=== PATIENT | male | born 1945 | race Two or more races ===

== ENCOUNTER 2020-04-02 19:42 | Inpatient (IN) | payer MEDICARE ==
[~2020-04-02] VITALS: Ht 157.5 cm; Wt 68.9 kg
--- NOTE | 2020-04-02 19:45 | NUR ---
SUDHIR FROM HOME C/O DIZZINESS X1 DAY. pt aaox4, -sob, not in acute distress, -sob, denies n/v/d. vss, pending er provider chaya
--- NOTE | 2020-04-02 20:04 | NUR ---
IV INITIATED LAC 18G. LABS DRAWN FROM SITE, TACO MAKER AT BEDSIDE FOR COLLECTION. IV INTACT AND PATENT, PLACED ON SALINE LOCK.
[2020-04-02 20:06] LABS: BASOPHILS # (AUTO) 0.3 /CMM (0.0-0.2); BASOPHILS % (AUTO) 2.7 % (0.0-2.0); EOSINOPHILS % (AUTO) 4.4 % (0.0-6.0); HEMATOCRIT 42 % (39-51); HEMOGLOBIN 14.3 g/dL (13.5-17.5); LYMPHOCYTES # (AUTO) 1.6 /CMM (0.8-4.8); MEAN CORPUSCULAR HGB CONC 34 g/dl (31.0-36.0); MEAN CORPUSCULAR VOLUME 93 fL (80-96); MONOCYTES # (AUTO) 0.8 /CMM (0.1-1.30); MONOCYTES % (AUTO) 8.5 % (2.0-12.0); NEUTROPHILS # (AUTO) 6.2 /CMM (1.8-8.9); NEUTROPHILS % (AUTO) 67.4 % (43.0-81.0); PLATELET COUNT (AUTO) 350 /CMM (150-450); RED BLOOD CELL COUNT(AUTO) 4.52 MIL/uL (4.5-6.0); WHITE BLOOD COUNT (AUTO) 9.2 K/uL (4.3-11.0)
--- NOTE | 2020-04-02 20:12 | NUR ---
PT BROUGHT BY RADIOLOGY TO CT
[2020-04-02 20:14] LABS: CALCIUM, SERUM 8.9 mg/dL (8.5-10.1); CREATININE 0.7 mg/dL (0.6-1.3); POTASSIUM 4.2 mmol/L (3.5-5.1)
[2020-04-02] MEDS ORDERED: ALPRAZOLAM 0.25 MG TABLET PO ONE (21:30)
[2020-04-02] MEDS ORDERED: ACETAMINOPHEN 325 MG TABLET PO ONE (21:30)
--- NOTE | 2020-04-02 21:34 | NUR ---
LAB CALLED REGARDING NEGATIVE COVID RESULT.
[2020-04-02] MEDS ORDERED: LORAZEPAM 0.5 MG TABLET ONE (21:42)
[2020-04-02] MEDS ORDERED: ACETAMINOPHEN 325 MG TABLET ONE (21:43)
--- NOTE | 2020-04-02 22:02 | NUR ---
DR. CHARLIE DELEON PER ER ORDER.
[2020-04-02] MEDS ORDERED: IV NS 0.9% 500 ML BAG IV ONE (22:30)
[2020-04-02] MEDS ORDERED: MAGNESIUM HYDROXIDE 30 ML UDC PO PRN (23:00)
[2020-04-02] MEDS ORDERED: Z GUARD REMEDY 2 OZ OINT TP PRN (23:00)
[2020-04-02] MEDS ORDERED: MAG HYDROX/AL HYDROX/SIMETH 30 ML UDC PO PRN (23:00)
[2020-04-02] MEDS ORDERED: ONDANSETRON HCL/PF 4 MG/2 ML VIAL IVP PRN (23:00)
--- NOTE | 2020-04-02 23:32 | NUR ---
US AT BEDSIDE
--- NOTE | 2020-04-03 00:02 | NUR ---
TELE 311-2
--- NOTE | 2020-04-03 00:30 | NUR ---
report given to svetlana martinez for kristi
--- NOTE | 2020-04-03 01:00 | NUR ---
consumer services advisoralarm installation technician notes Pt arrived at the unit with a wheelchair and EMT. Pt is alert and orientedX4. Respiration is normal in room air. No SOB. No S/S of distress noted. VS is stable. Tele monitor showed SR. IV site at LAC# 18 is clean, intact and flushes well. Skin assessment is done and performed. Pt's skin is intact. Pt's belonging is checked by SHRADDHA Flynn and placed at Pt's chart. Pt informed that Pt's daughter Veronica will come in the morning and metal pickling equipment operator his wallet and also drop off Pt's medications lists. Reorient Pt to the room and the use of call light. Pt verbalize understanding. Admission order received from MD. Safety precautions is maintained. Bed at low position, brakes locked, side rails upX2 and call light is within reach. Will continue to monitor.
[2020-04-03 01:15] VITALS: BP 109/58
--- NOTE | 2020-04-03 01:55 | NUR ---
legal instruments examiner notes Informed and notified Echo result to JANENE Reaves. ADOPTION AGENT ordered for excellence specialist to see the result tomorrow. Charge nurse is aware and informed.
[2020-04-03] MEDS: ACETAMINOPHEN 325 MG TABLET PO PRN ×2 (02:10→08:46)
--- NOTE | 2020-04-03 02:10 | NUR ---
fork truck operator notes Pt's complaining of headache and requesting tylenol. Administered tylenol 325 mg/2 tabs/po as ordered for headache. Safety precautions is maintained. Will continue to monitor.
[2020-04-03] MEDS: IV NS 0.9% 1,000 ML IV PRN (02:33)
[2020-04-03 04:00] VITALS: BP 111/63
--- NOTE | 2020-04-03 05:36 | NUR ---
graduate assistant athletic trainer notes Pt's complaining of headache and requesting meds. RECORDS MANAGEMENT TECHNICIAN ordered ibuprofen 200 mg/Q 8 hr/PRN/po. Order carried out.
[2020-04-03] MEDS ORDERED: IBUPROFEN 200 MG TABLET ONE (05:46)
--- NOTE | 2020-04-03 05:47 | NUR ---
marina porter notes Pt's complaining of headache and requesting meds. Administered ibuprofen 200 mg/po/prn as ordered for headache. Safety precautions is maintained. Will continue to monitor.
[2020-04-03] MEDS ORDERED: IBUPROFEN 200 MG TABLET PO PRN (06:00)
[2020-04-03 06:40] LABS: BASOPHILS # (AUTO) 0.2 /CMM (0.0-0.2); EOSINOPHILS % (AUTO) 5.1 % (0.0-6.0); HEMATOCRIT 39 % (39-51); LYMPHOCYTES # (AUTO) 2.3 /CMM (0.8-4.8); MEAN CORPUSCULAR HGB CONC 33 g/dl (31.0-36.0); MEAN CORPUSCULAR VOLUME 94 fL (80-96); MONOCYTES # (AUTO) 0.8 /CMM (0.1-1.30); NEUTROPHILS # (AUTO) 5.4 /CMM (1.8-8.9); NEUTROPHILS % (AUTO) 58.9 % (43.0-81.0); PLATELET COUNT (AUTO) 327 /CMM (150-450); RED BLOOD CELL COUNT(AUTO) 4.15 MIL/uL (4.5-6.0); WHITE BLOOD COUNT (AUTO) 9.2 K/uL (4.3-11.0)
--- NOTE | 2020-04-03 06:50 | NUR ---
RN CLOSING NOTE: Patient in bed resting comfortably. Patient breathing even and unlabored with no signs of SOB or acute respiratory distress. Safety measure is maintained, bed is in the lowest level, bed is locked, alarm is on, side rails x2 are up, and call light is within reach. Endorsed continuity of care to morning nurse.
[2020-04-03 07:17] LABS: CALCIUM, SERUM 8.5 mg/dL (8.5-10.1); CREATININE 0.7 mg/dL (0.6-1.3); PHOSPHORUS 3.2 mg/dL (2.5-4.9); POTASSIUM 3.9 mmol/L (3.5-5.1)
[2020-04-03 07:21] LABS: THYROID STIMULATING HORMONE 3.685 uIU/mL (0.358-3.74)
[2020-04-03 08:00] VITALS: BP 126/84
[2020-04-03] MEDS: PANTOPRAZOLE 40 MG TABLET.DR PO SCH (08:44)
[2020-04-03] MEDS: HYDROCODONE/APAP 5/325MG TABLET PO PRN ×2 (13:21→17:00)
[2020-04-03 16:00] VITALS: BP 155/70
--- NOTE | 2020-04-03 18:00 | NUR ---
received pt. in am alert and oriented x3-4.asks same questions freq.getting oob often to brm. or to go to desk.med. x3 for headache.dtr. calling in freq. to check on pt.home meds brought in by dtr. as well as some more belongings. added to belonging sheet. dr. murrieta made aware meds to be added.iv infusing.on tele.ua sent as per orders.
[2020-04-03] MEDS ORDERED: CARV6.252 PO (18:41)
[2020-04-03] MEDS ORDERED: TAMS-12 PO (18:41)
[2020-04-03] MEDS ORDERED: ZOLP5TAB8 PO (18:41)
[2020-04-03] MEDS ORDERED: ASPI-1169 PO (18:41)
[2020-04-03] MEDS ORDERED: CLOP75TA15 PO (18:41)
[2020-04-03] MEDS ORDERED: TURM500C9 PO (18:41)
[2020-04-03] MEDS ORDERED: ACID1TAB12 PO (18:41)
[2020-04-03] MEDS ORDERED: ROSU20TA32 PO (18:41)
[2020-04-03] MEDS ORDERED: OLME40TA12 PO (18:41)
[2020-04-03] MEDS ORDERED: ERGO500014 PO (18:41)
[2020-04-03] MEDS ORDERED: GINK120C PO (18:41)
[2020-04-03] MEDS ORDERED: LEVO75TA7 PO (18:44)
--- NOTE | 2020-04-03 19:55 | NUR ---
CYLINDER MACHINE OPERATOR OPENING NOTES RECEIVED PATIENT IN BED, ALERT AND ORIENTED X 3 FORGETFUL. VERBALLY RESPONSIVE AND ABLE TO FOLLOW DIRECTION. BREATHING REGULAR AND UNLABORED ON ROOM AIR. LEFT AC G18 IV LINE INTACT AND PATENT, INFUSING WELL WITH NO BLEEDING OR S/S OF INFILTRATION NOTED. ON CARDIAC MONITORING WITH SINUS BRADYCARDIA AT 58bpm. DENIES PAIN/DISCOMFORT AT THIS TIME. BED LOW AND LOCKED ON SEMI FOWLERS POSITION. CALL LIGHT IN REACH. WILL CONTINUE TO MONITOR.
[2020-04-03 20:00] VITALS: BP 154/78
[2020-04-03 20:43] VITALS: BP 154/78
[2020-04-04] VITALS (7 sets, daily range): BP systolic 154–186; BP diastolic 77–95
[2020-04-04] MEDS: ACETAMINOPHEN 325 MG TABLET PO PRN (00:19)
[2020-04-04] MEDS: HYDROCODONE/APAP 5/325MG TABLET PO PRN ×4 (01:39→22:37)
[2020-04-04 05:21] LABS: COLOR,URINE YELLOW (YELLOW)
[2020-04-04 05:22] LABS: BACTERIA,URINE None seen /HPF (None Seen); BILIRUBIN,URINE NEGATIVE (NEGATIVE); BLOOD, URINE N Ery/uL (NEGATIVE); LEUKOCYTE ESTERASE ,URINE NEGATIVE (NEGATIVE); NITRITE, URINE NEGATIVE (NEGATIVE); PROTEIN,URINE NEGATIVE (NEGATIVE); RBC,URINE 0-2 /HPF (0-2); SQUAMOUS EPITHELIAL CELL,UR Rare /HPF (None Seen); UGLUCOSE NEGATIVE (NEGATIVE); UROBILINOGEN,URINE 0.2 EU/dL (0.2); WBC,URINE 0-2 /HPF (0-3)
[2020-04-04] MEDS: IV NS 0.9% 1,000 ML IV PRN (06:04)
[2020-04-04 06:31] LABS: BASOPHILS # (AUTO) 0.2 /CMM (0.0-0.2); BASOPHILS % (AUTO) 2.2 % (0.0-2.0); EOSINOPHILS % (AUTO) 2.6 % (0.0-6.0); HEMATOCRIT 39 % (39-51); HEMOGLOBIN 13.2 g/dL (13.5-17.5); LYMPHOCYTES # (AUTO) 1.9 /CMM (0.8-4.8); LYMPHOCYTES % (AUTO) 19.4 % (20.0-44.0); MEAN CORPUSCULAR HGB CONC 34 g/dl (31.0-36.0); MEAN CORPUSCULAR VOLUME 94 fL (80-96); MONOCYTES # (AUTO) 0.8 /CMM (0.1-1.30); MONOCYTES % (AUTO) 8.3 % (2.0-12.0); NEUTROPHILS # (AUTO) 6.6 /CMM (1.8-8.9); NEUTROPHILS % (AUTO) 67.5 % (43.0-81.0); PLATELET COUNT (AUTO) 334 /CMM (150-450); RED BLOOD CELL COUNT(AUTO) 4.16 MIL/uL (4.5-6.0); WHITE BLOOD COUNT (AUTO) 9.8 K/uL (4.3-11.0)
[2020-04-04] MEDS: PANTOPRAZOLE 40 MG TABLET.DR PO SCH ×2 (06:37→08:27)
--- NOTE | 2020-04-04 06:50 | NUR ---
ICE SCULPTOR CLOSING NOTES PATIENT IN BED, ALERT AND ORIENTED X 3 FORGETFUL. AFEBRILE WITH NO S/S OF DISTRESS OBSERVED. LEFT AC G18 IV LINE PATENT AND INFUSING WELL. MAINTAINED ON CARDIAC MONITORING WITH SINUS RHYTHM AT 62bpm. NO COMPLAINTS OF PAIN/DISCOMFORT REPORTED AT THIS TIME. BED LOW AND LOCKED ON SEMI FOWLERS POSITION. CALL LIGHT IN REACH. WILL ENDORSE TO MORNING SHIFT FOR SHITAL.
[2020-04-04 07:03] LABS: CALCIUM, SERUM 8.4 mg/dL (8.5-10.1); CREATININE 0.7 mg/dL (0.6-1.3); MAGNESIUM 2.1 mg/dL (1.8-2.4); PHOSPHORUS 3.5 mg/dL (2.5-4.9); POTASSIUM 4.1 mmol/L (3.5-5.1)
[2020-04-04 07:17] LABS: THYROID STIMULATING HORMONE 5.274 uIU/mL (0.358-3.74); URIC ACID 3.6 mg/dL (2.6-7.2)
[2020-04-04] MEDS: CLOPIDOGREL BISULFATE 75 MG TABLET PO SCH (15:34)
[2020-04-04] MEDS ORDERED: CLONIDINE HCL 0.1 MG TABLET PO PRN (16:00)
[2020-04-04] MEDS ORDERED: Medication Not On Formulary EA (Olmesartan Medoxomil (Benicar) 40 MG) PO SCH (18:00)
[2020-04-04] MEDS: LOSARTAN POTASSIUM 50 MG TABLET PO SCH (18:20)
[2020-04-04] MEDS: TAMSULOSIN 0.4 MG CAP.SR.24H PO SCH (18:21)
[2020-04-04] MEDS: CARVEDILOL 6.25 MG TABLET PO SCH (18:23)
--- NOTE | 2020-04-04 18:30 | NUR ---
RECEIVED PT. IN AM. ALERT AND ORIENTED X3.FORGETFUL.IV INFUSING.ANANYA BAIRES IN TO SEE PT. ORDERS GIVEN. MRI CHECK LIST DONE WITH DTR.WAXER FLOOR UP TO FLOOR AND SPOKE WITH DTR.DECIDED DUE TO HEART STENT TO HOLD OFF ON MRI TILL TOMORROW.HOME MEDS RESUMED. URINE SENT PER NEPHROLOGY ORDER.PT. UP WALKING ABOUT.DTR. CALLING OFTEN TO CHECK ON PT. EEG DONE.
--- NOTE | 2020-04-04 19:10 | NUR ---
PRODUCT APPLICATIONS ENGINEER OPENING NOTES RECEIVED PATIENT IN ROOM ,AWAKE ALERT AND ORIENTED X3 NOTED WALKING AROUND, STEADY GAIT, TELE MONITOR CURRENTLY NOT IN PLACE, WILL EDUCATE PT TO KEEP TELE BOX IN PLACE. PER REPORT PT HAS BEEN SR ,CURRENT HR IS 61, IV SITE TO LEFT AC #18G INTACT AND PATENT, IVF RUNNING ORDERED, NO REDNESS, NO INFILTRATION PRESENT, ORIENTED TO STAFF AND CALL LIGHT AND KEPT WITHIN REACH, DENIES PAIN AT THIS TIME, SAFETY PRECAUTIONS RENDERED, ALL NEEDS ATTENDED AT THIS TIME, WILL CONTINUE TO MONITOR.
--- NOTE | 2020-04-04 22:39 | NUR ---
buying intern notes patient complained of headache states 10/27 can i have norco, norco prn given , vs wnl, lights dimmed, will continue to monitor for effectiveness.
[2020-04-04 23:07] LABS: OSMOLALITY,URINE 257 mOS/kg (340-1090)
[2020-04-05] VITALS: BP_SYST 144; BP_SYST 154; BP_DIAS 71; BP_DIAS 72
[2020-04-05 01:09] LABS: URINE SODIUM, RANDOM 50 mmol/l (40-220)
[2020-04-05] MEDS: ACETAMINOPHEN 325 MG TABLET PO PRN (02:51)
--- NOTE | 2020-04-05 02:51 | NUR ---
barn operator notes patient states he still has a little headache and requesting for tylenol, prn given as ordered. vs wnl.
[2020-04-05 04:00] VITALS: BP 150/68
--- NOTE | 2020-04-05 07:04 | NUR ---
FLAT GRINDER OPERATOR NOTES WILL ENDORSE TO NEXT SHIFT FOR CONTINUITY OF CARE.
--- NOTE | 2020-04-05 07:04 | NUR ---
sports team marketing intern notes patient stated that after they joycelyn a blood sample he has pain in heart and it started right after they joycelyn blood. vs assessed, wnl 134/73,18,02 98%, 64.98.8. patient also stated he felt a little anxious, offered norco for pain patient, patient wanted heart checked, stat ekg ordered.will endorse to next shift. remains awake alert and oriented z4, respirations even and unlabored with equal rise and fall of chest, iv site left ac # 18g intact and patent, ivf running as ordered, on internal medicine hospitalist sr 64. all needs attended throughout shift, will continue to monitor and attend to needs.
[2020-04-05 07:09] LABS: CALCIUM, SERUM 8.9 mg/dL (8.5-10.1); CREATININE 0.8 mg/dL (0.6-1.3); MAGNESIUM 2.5 mg/dL (1.8-2.4); PHOSPHORUS 3.9 mg/dL (2.5-4.9); POTASSIUM 4.6 mmol/L (3.5-5.1)
[2020-04-05 07:22] LABS: BASOPHILS # (AUTO) 0.2 /CMM (0.0-0.2); HEMATOCRIT 43 % (39-51); HEMOGLOBIN 14.2 g/dL (13.5-17.5); LYMPHOCYTES # (AUTO) 2.1 /CMM (0.8-4.8); LYMPHOCYTES % (AUTO) 22.2 % (20.0-44.0); MEAN CORPUSCULAR HGB CONC 33 g/dl (31.0-36.0); MEAN CORPUSCULAR VOLUME 95 fL (80-96); MONOCYTES # (AUTO) 0.9 /CMM (0.1-1.30); MONOCYTES % (AUTO) 9.5 % (2.0-12.0); NEUTROPHILS % (AUTO) 62.3 % (43.0-81.0); PLATELET COUNT (AUTO) 341 /CMM (150-450); RED BLOOD CELL COUNT(AUTO) 4.49 MIL/uL (4.5-6.0); WHITE BLOOD COUNT (AUTO) 9.6 K/uL (4.3-11.0)
--- NOTE | 2020-04-05 07:30 | NUR ---
ms rn received on bed, awake,alert,oriented x3,patient is forgetful at times,denies pain at this time, will monitor patient.
[2020-04-05 08:00] VITALS: BP 155/68
[2020-04-05] MEDS ORDERED: TURMERIC ROOT EXTRACT 1000 MG PO SCH (09:00)
[2020-04-05] MEDS ORDERED: LORAZEPAM 1 MG TABLET PO PRN (09:00)
[2020-04-05] MEDS ORDERED: GINKGO BILOBA EXTRACT 120 MG PO SCH (09:00)
--- NOTE | 2020-04-05 09:00 | NUR ---
ms mota breakfast served, was seen by gertrude amaral/ orders made and carried out.
[2020-04-05] MEDS: ACIDOPHILUS/BULGARICUS 1 EACH TAB.CHEW PO SCH (09:08)
[2020-04-05] MEDS: ASPIRIN 81 MG TAB.CHEW PO SCH (09:08)
[2020-04-05] MEDS: LEVOTHYROXINE SODIUM 75 MCG TABLET PO SCH (09:08)
[2020-04-05] MEDS: HYDROCODONE/APAP 5/325MG TABLET PO PRN ×2 (09:08→21:08)
[2020-04-05] MEDS: ATORVASTATIN 40 MG TABLET PO SCH (09:08)
[2020-04-05] MEDS: CARVEDILOL 6.25 MG TABLET PO SCH ×2 (09:13→18:46)
[2020-04-05] MEDS: CLOPIDOGREL BISULFATE 75 MG TABLET PO SCH (09:14)
--- NOTE | 2020-04-05 11:00 | NUR ---
ms rn was seen by dr. wetzel, was able to speak w/ daughter,will monitor patient.
[2020-04-05] MEDS: clonazePAM 0.5 MG TABLET PO SCH (13:46)
[2020-04-05] MEDS: RIVASTIGMINE TARTRATE 1.5 MG CAPSULE PO SCH (13:46)
[2020-04-05] MEDS: AMLODIPINE BESYLATE 5 MG TABLET PO SCH (14:21)
[2020-04-05] MEDS: IV NS 0.9% 1,000 ML IV PRN (14:36)
--- NOTE | 2020-04-05 15:00 | NUR ---
ms thompson on bed, all needs attended.
[2020-04-05 16:00] VITALS: BP 142/76
--- NOTE | 2020-04-05 16:49 | NUR ---
ms rn on bed, no distress noted.
[2020-04-05] MEDS: TAMSULOSIN 0.4 MG CAP.SR.24H PO SCH (18:46)
[2020-04-05] MEDS: LOSARTAN POTASSIUM 50 MG TABLET PO SCH (18:46)
--- NOTE | 2020-04-05 19:40 | NUR ---
EMERGENCY DEPARTMENT NURSE OPENING NOTES RECEIVED PATIENT IN BED RESTING COMFORTABLY, AWAKE, ALERT AND ORIENTED X3. NO ACUTE DISTRESS NOTED. PATIENT REMAINS ON CHRONOMETER TESTER. IV SITE TO LEFT AC #18G INTACT AND PATENT, IVF RUNNING @80MLS/HR, TOLERATED WELL. NO REDNESS, NO INFILTRATION NOTED. CALL LIGHT AND KEPT WITHIN REACH, DENIES PAIN/DISCOMFORT AT THIS TIME. SAFETY PRECAUTIONS IMPLEMENTED, ALL NEEDS ATTENDED AND ANTICIPATED. WILL CONTINUE TO MONITOR.
[2020-04-05 20:00] VITALS: BP 113/60
[2020-04-06] VITALS: BP 131/57
[2020-04-06] MEDS: clonazePAM 0.5 MG TABLET PO SCH ×3 (00:32→23:05)
[2020-04-06] MEDS: RIVASTIGMINE TARTRATE 1.5 MG CAPSULE PO SCH ×3 (00:32→23:05)
[2020-04-06] MEDS: IV NS 0.9% 1,000 ML IV PRN (03:42)
[2020-04-06 04:03] VITALS: BP 143/69
--- NOTE | 2020-04-06 06:22 | NUR ---
COCOA PRESS OPERATOR OPENING NOTES PATIENT IN BED RESTING COMFORTABLY, AWAKE, ALERT AND ORIENTED X3. NO ACUTE DISTRESS NOTED. PATIENT REMAINS ON ENGINEER SR 61. IV SITE TO LEFT AC #18G INTACT AND PATENT, IVF RUNNING @80MLS/HR, TOLERATED WELL. CALL LIGHT AND KEPT WITHIN REACH. DENIES PAIN/DISCOMFORT AT THIS TIME. SAFETY PRECAUTIONS IMPLEMENTED, ALL NEEDS ATTENDED AND ANTICIPATED. WILL ENDORSE TO AM NURSE FOR CONTINUITY OF CARE.
[2020-04-06 06:59] LABS: BASOPHILS # (AUTO) 0.2 /CMM (0.0-0.2); EOSINOPHILS % (AUTO) 8.4 % (0.0-6.0); HEMATOCRIT 38 % (39-51); HEMOGLOBIN 12.9 g/dL (13.5-17.5); LYMPHOCYTES # (AUTO) 2.1 /CMM (0.8-4.8); LYMPHOCYTES % (AUTO) 25.8 % (20.0-44.0); MEAN CORPUSCULAR HGB CONC 34 g/dl (31.0-36.0); MEAN CORPUSCULAR VOLUME 94 fL (80-96); MONOCYTES # (AUTO) 0.8 /CMM (0.1-1.30); NEUTROPHILS # (AUTO) 4.4 /CMM (1.8-8.9); NEUTROPHILS % (AUTO) 53.8 % (43.0-81.0); PLATELET COUNT (AUTO) 322 /CMM (150-450); RED BLOOD CELL COUNT(AUTO) 4.09 MIL/uL (4.5-6.0); WHITE BLOOD COUNT (AUTO) 8.2 K/uL (4.3-11.0)
[2020-04-06 07:07] LABS: CALCIUM, SERUM 8.6 mg/dL (8.5-10.1); CARBON DIOXIDE 25 mmol/L (21-32); CHLORIDE 97 mmol/L (98-107); CREATININE 0.6 mg/dL (0.6-1.3); GLUCOSE 93 mg/dL (74-106); SODIUM SERUM 130 mmol/L (136-145); UREA NITROGEN, BLOOD 9 mg/dL (7-18)
--- NOTE | 2020-04-06 07:45 | NUR ---
SURVEY RESEARCH ASSOCIATE OPENING NOTES RECEIVED PATIENT RESTING COMFORTABLY IN BED, AWAKE, A/OX3 WITH EPISODES OF FORGETFULNESS. PT ON RA WITH NO ACUTE RESPIRATORY DISTRESS NOTED, BREATHING EVEN AND UNLABORED. PATIENT ON DRYWALL STRIPPER HELPER READING SINUS RHYTHM WITH HR IN THE 60'S. IV TO LT AC #18G PATENT AND INTACT, INFUSING NS @80MLS/HR, NO SIGNS OR REDNESS, OR SWELLING NO INFILTRATION NOTED TO IV SITE.NO C/O PAIN OR DISCOMFORT AT THIS TIME. BED IS AT LOWEST POSITION AND LOCKED WITH SIDE RAILS UPX2 AND CALL LIGHT WITH IN REACH. ALL SAFETY PRECAUTIONS IN PLACE . WILL CONTINUE TO MONITOR.
[2020-04-06 08:00] VITALS: BP 147/72
[2020-04-06] MEDS: PANTOPRAZOLE 40 MG TABLET.DR PO SCH (08:14)
[2020-04-06] MEDS: LEVOTHYROXINE SODIUM 75 MCG TABLET PO SCH (08:14)
[2020-04-06] MEDS: ASPIRIN 81 MG TAB.CHEW PO SCH (08:59)
[2020-04-06] MEDS ORDERED: SERTRALINE HCL 50 MG TABLET PO SCH (09:00)
[2020-04-06] MEDS: ACIDOPHILUS/BULGARICUS 1 EACH TAB.CHEW PO SCH (09:02)
[2020-04-06] MEDS: CARVEDILOL 6.25 MG TABLET PO SCH ×2 (09:02→17:05)
[2020-04-06] MEDS: CLOPIDOGREL BISULFATE 75 MG TABLET PO SCH (09:02)
[2020-04-06] MEDS: AMLODIPINE BESYLATE 5 MG TABLET PO SCH (09:02)
[2020-04-06] MEDS: ATORVASTATIN 40 MG TABLET PO SCH (09:02)
[2020-04-06] MEDS: HYDROCODONE/APAP 5/325MG TABLET PO PRN ×2 (11:33→20:32)
[2020-04-06 16:00] VITALS: BP 130/63
[2020-04-06] MEDS: LOSARTAN POTASSIUM 50 MG TABLET PO SCH (17:05)
[2020-04-06] MEDS: TAMSULOSIN 0.4 MG CAP.SR.24H PO SCH (17:05)
--- NOTE | 2020-04-06 18:33 | NUR ---
TRANSFER CAR OPERATOR CLOSING NOTES PATIENT RESTING IN BED, AWAKE AND A/OX3 WITH EPISODES OF FORGETFULNESS. PT ON RA WITH NO ACUTE RESPIRATORY DISTRESS NOTED, BREATHING EVEN AND UNLABORED. PATIENT ON BIOLOGY LABORATORY ASSISTANT READING SINUS RHYTHM WITH HR IN THE 60'S. IV TO LT AC #18G PATENT AND INTACT, INFUSING NS @80MLS/HR, WITH NO SIGNS OF REDNESS, OR SWELLING . PT TO HAVE MRI DONE, MRI CHECKLIST DONE AND IN CHART. BED IS AT LOWEST POSITION AND LOCKED WITH SIDE RAILS UPX2 AND CALL LIGHT WITH IN REACH. ALL SAFETY PRECAUTIONS IN PLACE . WILL ENDORSE TO ONCOMING SHIFT
[2020-04-06 20:00] VITALS: BP 138/70
[2020-04-07] MEDS: IV NS 0.9% 1,000 ML IV PRN (00:51)
[2020-04-07] MEDS: PANTOPRAZOLE 40 MG TABLET.DR PO SCH (05:58)
[2020-04-07] MEDS: LEVOTHYROXINE SODIUM 75 MCG TABLET PO SCH (05:58)
[2020-04-07 07:42] LABS: BASOPHILS # (AUTO) 0.2 /CMM (0.0-0.2); BASOPHILS % (AUTO) 2.5 % (0.0-2.0); EOSINOPHILS % (AUTO) 7.7 % (0.0-6.0); HEMATOCRIT 39 % (39-51); HEMOGLOBIN 12.9 g/dL (13.5-17.5); LYMPHOCYTES % (AUTO) 23.6 % (20.0-44.0); MEAN CORPUSCULAR HGB CONC 34 g/dl (31.0-36.0); MEAN CORPUSCULAR VOLUME 94 fL (80-96); MONOCYTES # (AUTO) 0.8 /CMM (0.1-1.30); MONOCYTES % (AUTO) 9.3 % (2.0-12.0); NEUTROPHILS # (AUTO) 4.7 /CMM (1.8-8.9); NEUTROPHILS % (AUTO) 56.9 % (43.0-81.0); PLATELET COUNT (AUTO) 318 /CMM (150-450); RED BLOOD CELL COUNT(AUTO) 4.11 MIL/uL (4.5-6.0); WHITE BLOOD COUNT (AUTO) 8.3 K/uL (4.3-11.0)
[2020-04-07 08:02] LABS: CALCIUM, SERUM 8.4 mg/dL (8.5-10.1); CREATININE 0.7 mg/dL (0.6-1.3); POTASSIUM 4.4 mmol/L (3.5-5.1)
[2020-04-07 09:17] VITALS: BP 148/71
[2020-04-07] MEDS: ATORVASTATIN 40 MG TABLET PO SCH (09:38)
[2020-04-07] MEDS: ASPIRIN 81 MG TAB.CHEW PO SCH (09:38)
[2020-04-07] MEDS: ACIDOPHILUS/BULGARICUS 1 EACH TAB.CHEW PO SCH (09:38)
[2020-04-07] MEDS: clonazePAM 0.5 MG TABLET PO SCH (09:38)
[2020-04-07] MEDS: RIVASTIGMINE TARTRATE 1.5 MG CAPSULE PO SCH (09:39)
[2020-04-07] MEDS: AMLODIPINE BESYLATE 5 MG TABLET PO SCH (09:39)
[2020-04-07] MEDS: CLOPIDOGREL BISULFATE 75 MG TABLET PO SCH (09:39)
[2020-04-07 09:40] VITALS: BP 148/71
[2020-04-07] MEDS: CARVEDILOL 6.25 MG TABLET PO SCH (09:40)
[2020-04-07] MEDS ORDERED: CLON0.5T4 PO (15:03)
[2020-04-07] MEDS ORDERED: Rivastigmine Tartrate PO (15:03)
[2020-04-07] MEDS ORDERED: CARV12.5 PO (15:03)
[2020-04-07] MEDS ORDERED: AMLO5TAB4 PO (15:03)
--- NOTE | 2020-04-07 17:05 | NUR ---
pt discharged home in stable condition, no pain or discomfort noted, all belongings given, instruction and education provided to pt and his daughter. pt left hospital safely.
[2020-04-08] MEDS ORDERED: ERGOCALCIFEROL (VITAMIN D 2) 50,000 UNIT CAPSULE PO SCH (09:00)
== END 2020-04-07 17:00 | disposition home or self-care (01) | DRG 643 ==
LOC: ER 19:44 → MED 04-03 00:04 → TELE 04-04 14:32
PROVIDERS: ADMIT Registered Nurse; ATTEND Nurse Practitioner Acute Care
DX: E22.2 Syndrome of inappropriate secretion of antidiuretic hormone (principal); G93.41 Metabolic encephalopathy; I50.32 Chronic diastolic (congestive) heart failure; I25.10 Atherosclerotic heart disease of native coronary artery without angina pectoris; E03.9 Hypothyroidism, unspecified; E86.1 Hypovolemia; E87.6 Hypokalemia; F32.9 Major depressive disorder, single episode, unspecified; G47.00 Insomnia, unspecified; I11.0 Hypertensive heart disease with heart failure; Z95.1 Presence of aortocoronary bypass graft; Z98.61 Coronary angioplasty status; R51.9 Headache, unspecified; F41.9 Anxiety disorder, unspecified; F41.0 Panic disorder [episodic paroxysmal anxiety]
CPT/HCPCS: 36415; 70450-TC; 71045-TC; 80048-TC; 80061-TC; 81001; 82533; 83735-TC; 83935-TC; 84100-TC; 84300-TC; 84439-TC; 84443-TC; 84481; 84484-TC; 84550-TC; 85025-TC; 85730-TC; 87081-TC; 93307-TC; 93880-TC; 95819-TC; 97112-TC; 97116-TC; 97530-TC; C9803; G0378; J7030